=== PATIENT | male | born 1965 | race Hispanic/Latino ===

== ENCOUNTER 2018-06-17 13:27 | Emergency (ER) | payer SELFPAY ==
[2018-06-17 13:30] VITALS: BMI 35.9
--- NOTE | 2018-06-17 14:25 | ED PDOC ---
Arrival/HPI - General Time Seen by Provider: 06/17/18 13:30 Historian: EM Caveat: Psychotic - History of Present Illness Narrative History of Present Illness (Text): 06/17/18 13:30 Cayetano Cat is a 52 year old male, with no significant past medical history, brought to the ER by police found on the street taking off his clothes and combative. Patient is agitated and uncooperative, cannot approach. Further HPI and ROS limited due to psychosis. Time/Duration: Prior to Arrival Symptom Course: Unchanged Activities at Onset: Light Context: Street Past Medical History - Provider Review Nursing Documentation Reviewed: Yes Family/Social History - Physician Review Nursing Documentation Reviewed: Yes Family/Social History: Unknown Family HX Allergies/Home Meds Allergies/Adverse Reactions: Allergies Unobtainable Allergy (Verified 06/17/18 13:29) Home Medications: Home Meds Medication Instructions Recorded Confirmed Unobtainable 06/17/18 06/17/18 Review of Systems - Review of Systems Systems not reviewed;Unavailable: Psychotic Physical Exam - Physical Exam Physical Exam Limitations: Psychotic Vital Signs Reviewed: Yes Vital Signs Temp Pulse Resp BP Pulse Ox 06/17/18 13:35 98.1 F 102 H 17 157/89 H 98 Temperature: Afebrile Blood Pressure: Hypertensive Pulse: Tachycardic Respiratory Rate: Normal Medical Decision Making ED Course and Treatment: 06/17/18 13:30 Impression: Patient is a 52 year old male with no significant past medical history brought to the emergency department by EMS and police. Patient found on the street taking his clothes off and combative. Patient is unapproachable in ED. Plan: -- EKG -- Labs -- Chest X-Ray -- Ativan -- Geodon Inj -- Urinalysis -- Reassess and disposition Prior Visits: Notes and results from previous visits were reviewed. Progress Notes: 06/17/18 15:14 Patient unapproachable and agitated in ED. Requesting sedatives. - Medication Orders Current Medication Orders: Lorazepam (Ativan) 2 mg IM ONCE ONE; Protocol Stop: 06/17/18 14:18 Ziprasidone (Geodon Inj) 20 mg IM STAT STA; Protocol Stop: 06/17/18 14:18 - Scribe Statement The provider has reviewed the documentation as recorded by the Scribe Cayetano Li All medical record entries made by the Scribe were at my direction and personally dictated by me. I have reviewed the chart and agree that the record accurately reflects my personal performance of the history, physical exam, medical decision making, and the department course for this patient. I have also personally directed, reviewed, and agree with the discharge instructions and disposition.
[2018-06-17 16:03] LABS: BASO # 0.06 K/mm3 (0.0-2.0); BASO % 0.6 % (0.0-3.0); EOS # 0.2 (0.0-0.7); EOS % 1.5 % (1.5-5.0); HEMOGLOBIN 15.3 g/dL (14.0-18.0); LYMPH # 2.9 (1.2-3.4); LYMPH % 26.9 % (22.0-35.0); MEAN CORPUSCULAR HEMOGLOBIN 31.2 pg (25.0-35.0); MEAN CORPUSCULAR HGB CONC 34.3 g/dl (31.0-37.0); MEAN PLATELET VOLUME 10.7 fl (7.0-11.0); MONO # 1.4 (0.1-0.6); RBC 4.9 10^6/uL (3.5-6.1); RED CELL DISTRIBUTION WIDTH 13.2 % (11.5-14.5); WHITE BLOOD COUNT 10.8 10^3/uL (4.5-11.0)
[2018-06-17 16:16] LABS: ALB/GLOB RATIO 1.7 (1.1-1.8); ALBUMIN 4.6 g/dL (3.0-4.8); ALT/SGPT 66 U/L (7-56); AST/SGOT 73 U/L (17-59); BLOOD UREA NITROGEN 20 mg/dL (7-21); CALCIUM 9.7 mg/dL (8.4-10.5); GFR NON-AFRICAN AMERICAN > 60
[2018-06-17 16:17] LABS: ACETAMINOPHEN < 10.0 ug/ml (10.0-20.0); SALICYLATE < 1 mg/dL (2.0-20.0)
[2018-06-17 17:17] VITALS: RESP 18
[2018-06-17 18:13] LABS: URINE BILIRUBIN NEGATIVE (NEGATIVE); URINE BLOOD NEGATIVE (NEGATIVE); URINE GLUCOSE (UA) NEGATIVE (NEGATIVE); URINE LEUKOCYTE ESTERASE TRACE Leu/uL (NEGATIVE); URINE PROTEIN TRACE mg/dL (<30 mg/dL)
[2018-06-17 18:18] LABS: URINE APPEARANCE CLEAR (CLEAR)
--- NOTE | 2018-06-17 18:32 | CARD ---
APPROVED REPORT Date of service: 06/17/2018 EKG Measurement Heart [id number] <Conclusion> Normal sinus rhythm Cannot rule out Anterior infarct, age undetermined Abnormal ECG
--- NOTE | 2018-06-17 18:34 | RAD ---
Date of service: 06/17/2018 HISTORY: pysch COMPARISON: No prior. FINDINGS: LUNGS: No active pulmonary disease. PLEURA: No significant pleural effusion identified, no pneumothorax apparent. CARDIOVASCULAR: No atherosclerotic calcification present Normal. OSSEOUS STRUCTURES: No significant abnormalities. VISUALIZED UPPER ABDOMEN: Normal. OTHER FINDINGS: None. IMPRESSION: No active disease.
[2018-06-17 18:51] LABS: BARBITURATES, UR NEGATIVE (NEGATIVE); BENZODIAZEPINES, UR NEGATIVE (NEGATIVE); OPIATES, UR NEGATIVE (NEGATIVE); PHENCYCLIDINE, UR NEGATIVE (NEGATIVE)
--- NOTE | 2018-06-17 22:14 | ED PDOC ---
Physical Exam Vital Signs Temp Pulse Resp BP Pulse Ox 06/17/18 18:50 90 18 120/70 99 06/17/18 17:00 84 18 141/80 99 06/17/18 16:00 88 20 139/80 99 06/17/18 14:46 98.0 F 96 H 17 142/88 98 06/17/18 13:35 98.1 F 102 H 17 157/89 H 98 Medical Decision Making ED Course and Treatment: 06/17/18 19:00 Case endorsed to me by Dr. Orozco, [place] [facility] [place]. 06/18/18 05:00 Pt seen and evaluated by [facility] [place] [facility] [place], pt accepted for involuntary admission, pending bed placement. 06/18/18 07:[address] Pedro Sotomayor, [place] [facility] [place]. - Lab Interpretations Lab Results: Total Bilirubin 0.9 mg/dL (0.2-1.3) 06/17/18 15:58 AST 73 U/L (17-59) H 06/17/18 15:58 ALT 66 U/L (7-56) H 06/17/18 15:58 Alkaline Phosphatase 76 U/L (38-126) 06/17/18 15:58 Total Protein 7.3 g/dL (5.8-8.3) 06/17/18 15:58 Albumin 4.6 g/dL (3.0-4.8) 06/17/18 15:58 Globulin 2.7 gm/dL 06/17/18 15:58 Albumin/Globulin Ratio 1.7 (1.1-1.8) 06/17/18 15:58 Urine Color yellow (YELLOW) 06/17/18 18:00 Urine Appearance Clear (CLEAR) 06/17/18 18:00 Urine pH 6.0 (4.7-8.0) 06/17/18 18:00 Ur Specific [place] 1.020 (1.005-1.035) 06/17/18 18:00 Urine Protein Trace mg/dL (<30 mg/dL) H 06/17/18 18:00 Urine Glucose (UA) Negative mg/dL (NEGATIVE) 06/17/18 18:00 Urine Ketones 15 mg/dL (NEGATIVE) H 06/17/18 18:00 Urine Blood Negative (NEGATIVE) 06/17/18 18:00 Urine Nitrate Negative (NEGATIVE) 06/17/18 18:00 Urine Bilirubin Negative (NEGATIVE) 06/17/18 18:00 Urine Urobilinogen 1.0 E.U./dL (<1 E.U./dL) H 06/17/18 18:00 Ur Leukocyte Esterase Trace Homero/uL (NEGATIVE) H 06/17/18 18:00 Urine RBC 1 - 3 /hpf (0-2) H 06/17/18 18:00 Urine WBC 10 - 15 /hpf (0-6) H 06/17/18 18:00 Ur Epithelial Cells 6 - 8 /hpf (0-5) H 06/17/18 18:00 - RAD Interpretation Radiology Orders: 06/17/18 14:20 CHEST PORTABLE [RAD] Stat - Medication Orders Current Medication Orders: Discontinued Medications Cephalexin Monohydrate (Keflex) 500 mg PO STAT STA; Protocol Stop: 06/17/18 21:04 Lorazepam (Ativan) 2 mg IM ONCE ONE; Protocol Stop: 06/17/18 14:18 Last Admin: 06/17/18 14:37 Dose: 2 mg IM Administration Charges Document 06/17/18 14:37 SZA (Rec: 06/17/18 14:37 [facility] [id number]) Injection Site MAR Injection Site Left Deltoid Charges for Administration # of IM Administrations 1 Ziprasidone (Geodon Inj) 20 mg IM STAT STA; Protocol Stop: 06/17/18 14:18 Last Admin: 06/17/18 14:37 Dose: 20 mg IM Administration Charges Document 06/17/18 14:37 SZA (Rec: 06/17/18 14:37 [id number] Injection Site MAR Injection Site Right Deltoid Charges for Administration # of IM Administrations 1 Disposition/Present on Arrival - Present on Arrival Any Indicators Present on Arrival: No History of DVT/PE: No History of Uncontrolled Diabetes: No Urinary Catheter: No History of Decub. Ulcer: No History Surgical Site Infection Following: None - Disposition Have Diagnosis and Disposition been Completed?: Yes Diagnosis: Psychotic disorder [place] [facility] [place] Time: 07:00 Condition: GOOD Forms: [employer] (Namibian)
--- NOTE | 2018-06-18 07:04 | ED PDOC ---
Physical Exam Vital Signs Reviewed: Yes Vital Signs Temp Pulse Resp BP Pulse Ox 06/18/18 06:38 98.2 F 98 H 18 117/74 98 06/18/18 00:02 89 18 132/72 98 06/17/18 18:50 90 18 120/70 99 06/17/18 17:00 84 18 141/80 99 06/17/18 16:00 88 20 139/80 99 06/17/18 14:46 98.0 F 96 H 17 142/88 98 06/17/18 13:35 98.1 F 102 H 17 157/89 H 98 Temperature: Afebrile Blood Pressure: Normal Pulse: Regular Respiratory Rate: Normal Appearance: Positive for: Well-Appearing Pain Distress: None Mental Status: Positive for: Alert and Oriented X 3 - Systems Exam Head: Present: Atraumatic, Normocephalic Pupils: Present: PERRL Extroacular Muscles: Present: EOMI Conjunctiva: Present: Normal Mouth: Present: Moist Mucous Membranes Neck: Present: Normal Range of Motion Respiratory/Chest: Present: Clear to Auscultation, Good Air Exchange Cardiovascular: Present: Regular Rate and Rhythm. No: Murmurs Abdomen: No: Tenderness, Distention Back: Present: Normal Inspection. No: CVA Tenderness Upper Extremity: Present: Normal Inspection Lower Extremity: Present: Normal Inspection Psychiatric: Present: Alert, Oriented x 3 Medical Decision Making ED Course and Treatment: 06/18/18 07:03 Case endorsed to me by Dr. Gramajo. Medically cleared by previous team. [place] [facility] [place] psych etiology. 1407 pt [facility], [place] [facility] [place] Lab Interpretations Lab Results: Total Bilirubin 0.9 mg/dL (0.2-1.3) 06/17/18 15:58 AST 73 U/L (17-59) H 06/17/18 15:58 ALT 66 U/L (7-56) H 06/17/18 15:58 Alkaline Phosphatase 76 U/L (38-126) 06/17/18 15:58 Total Protein 7.3 g/dL (5.8-8.3) 06/17/18 15:58 Albumin 4.6 g/dL (3.0-4.8) 06/17/18 15:58 Globulin 2.7 gm/dL 06/17/18 15:58 Albumin/Globulin Ratio 1.7 (1.1-1.8) 06/17/18 15:58 Urine Color yellow (YELLOW) 06/17/18 18:00 Urine Appearance Clear (CLEAR) 06/17/18 18:00 Urine pH 6.0 (4.7-8.0) 06/17/18 18:00 Ur Specific [place] 1.020 (1.005-1.035) 06/17/18 18:00 Urine Protein Trace mg/dL (<30 mg/dL) H 06/17/18 18:00 Urine Glucose (UA) Negative mg/dL (NEGATIVE) 06/17/18 18:00 Urine Ketones 15 mg/dL (NEGATIVE) H 06/17/18 18:00 Urine Blood Negative (NEGATIVE) 06/17/18 18:00 Urine Nitrate Negative (NEGATIVE) 06/17/18 18:00 Urine Bilirubin Negative (NEGATIVE) 06/17/18 18:00 Urine Urobilinogen 1.0 E.U./dL (<1 E.U./dL) H 06/17/18 18:00 Ur Leukocyte Esterase Trace Homero/uL (NEGATIVE) H 06/17/18 18:00 Urine RBC 1 - 3 /hpf (0-2) H 06/17/18 18:00 Urine WBC 10 - 15 /hpf (0-6) H 06/17/18 18:00 Ur Epithelial Cells 6 - 8 /hpf (0-5) H 06/17/18 18:00 - RAD Interpretation Radiology Orders: 06/17/18 14:20 CHEST PORTABLE [RAD] Stat - Medication Orders Current Medication Orders: Discontinued Medications Cephalexin Monohydrate (Keflex) 500 mg PO STAT STA; Protocol Stop: 06/17/18 21:04 Last Admin: 06/18/18 06:38 Dose: 500 mg Lorazepam (Ativan) 2 mg IM ONCE ONE; Protocol Stop: 06/17/18 14:18 Last Admin: 06/17/18 14:37 Dose: 2 mg IM Administration Charges Document 06/17/18 14:37 VLADIMIR (Rec: 06/17/18 14:37 VLADIMIR [id number]) Injection Site MAR Injection Site Left Deltoid Charges for Administration # of IM Administrations 1 Lorazepam (Ativan) 2 mg IM ONCE ONE; Protocol Stop: 06/18/18 06:54 Last Admin: 06/18/18 06:59 Dose: 2 mg IM Administration Charges Document 06/18/18 06:59 IT (Rec: 06/18/18 06:59 IT [id number]) Injection Site MAR Injection Site Left Vastus Lateralis Charges for Administration # of IM Administrations 1 Ziprasidone (Geodon Inj) 20 mg IM STAT STA; Protocol Stop: 06/17/18 14:18 Last Admin: 06/17/18 14:37 Dose: 20 mg IM Administration Charges Document 06/17/18 14:37 SZA (Rec: 06/17/18 14:37 SZA [id number]) Injection Site MAR Injection Site Right Deltoid Charges for Administration # of IM Administrations 1 - Scribe Statement The provider has reviewed the documentation as recorded by the Efra Moody All medical record entries made by the Rositaibmaxine were at my direction and personally dictated by me. I have reviewed the chart and agree that the record accurately reflects my personal performance of the history, physical exam, medical decision making, and the department course for this patient. I have also personally directed, reviewed, and agree with the discharge instructions and disposition. Disposition/Present on Arrival - Present on Arrival Any Indicators Present on Arrival: No History of DVT/PE: No History of Uncontrolled Diabetes: No Urinary Catheter: No History of Decub. Ulcer: No History Surgical Site Infection Following: None - Disposition Have Diagnosis and Disposition been Completed?: Yes Diagnosis: Psychotic disorder [place] [facility] [place]: 08:00 Patient Problems: Current Active Problems Problem Status Onset Psychotic disorder Acute Condition: GOOD Forms: [employer] (Burmese)
[2018-06-18 09:24] VITALS: TEMP 98
[2018-06-18 13:20] VITALS: BP 120/73; PULSE 93; O2SAT 100
== END 2018-06-18 13:10 | disposition short-term general hospital (02) ==
LOC: EDBD 13:27 → ED 13:27
DX: F29 Unspecified psychosis not due to a substance or known physiological condition (principal)
CPT/HCPCS: 71045; 80053; 81001; 83735; 85025; 87086; 90791; 93005; 96372; 99285; G0480; J2060; J3486